=== PATIENT | female | born 1990 | race Caucasian/White ===

== ENCOUNTER → 2017-04-02 | Outpatient (CLI) | payer BC | LOC: PREOP 05:34 | PROVIDERS: ATTEND Otolaryngology Otolaryngology/Facial Plastic Surgery | DX: Z01.818 Encounter for other preprocedural examination (principal); J02.0 Streptococcal pharyngitis ==

== ENCOUNTER 2019-01-26 18:43 | Emergency (ER) | payer BC ==
[~2019-01-26] VITALS: Ht 170.2 cm; Wt 100.0 kg
--- NOTE | 2019-01-26 19:06 | ED Back Pain ---
General Chief Complaint: Back Problems Stated Complaint: BACK PAIN Source of Information: Patient Exam Limitations: No Limitations History of Present Illness Date Seen by Provider: Jan 26, 2019 Time Seen by Provider: 19:02 Initial Comments Patient complains of right lower back pain radiating to his spine and her right hip for quite a while. It is worse in the past 2 days. She stands all day at work and her pain is much worse today. Her primary care provider prescribed hydrocodone but is not helping. She has had no x-rays. No injury. No fevers incontinence or IVDA Location: Lumbar Spine Radiation: Buttocks Allergies and Home Medications Allergies Coded Allergies: No Known Drug Allergies (Unverified , 01/26/19) Patient Home Medication List Home Medication List Reviewed: Yes Review of Systems Constitutional: no symptoms reported Respiratory: no symptoms reported Cardiovascular: no symptoms reported Gastrointestinal: no symptoms reported Musculoskeletal: back pain Psychiatric/Neurological: No Symptoms Reported All Other Systems Reviewed Negative Unless Noted: Yes Past Oisaiyt-Dxbtrd-Ypgsto Hx Patient Social History Recent Foreign Travel: No Contact w/Someone Who Travel: No Physical Exam Vital Signs Vital Signs - First Documented 01/26/19 19:01 Temp 36.8 Pulse 80 Resp 16 B/P (MAP) 145/79 (101) O2 Delivery Room Air Capillary Refill : Height, Weight, BMI Height: '" Weight: lbs. oz. kg; BMI Method: General Appearance: WD/WN, Mild Distress Neck: Supple Cardiovascular: Regular Rate, Rhythm Respiratory: Lungs Clear Gastrointestinal: Soft Back: Muscle Spasm, Vertebral Tenderness (no redness or swelling) Extremity: Normal Inspection Neurologic/Psychiatric: Alert, No Motor/Sensory Deficits (toe dorsiflexion 5/5 bilaterally. Sensation grossly intact), Normal Mood/Affect Skin: Normal Color, Warm/Dry Progress/Results/Core Measures Results/Orders My Orders Orders - EMERSON DOBBS MD Lumbar Spine 4 View Or More (01/26/19 18:57) Pelvis (Ap) (01/26/19 18:57) Ketorolac Injection (Toradol Injection) (01/26/19 19:15) Orphenadrine Injection (Norflex Injectio (01/26/19 19:15) Oxycodone/Apap 5/325mg Tablet (Percocet (01/26/19 20:00) Medications Given in ED Current Medications Medications Dose Ordered Sig/Jake Route Start Time Stop Time Status Last Admin Dose Admin Ketorolac Tromethamine 60 mg ONCE ONCE IM 01/26/19 19:15 01/26/19 19:16 DC 01/26/19 19:11 60 MG Orphenadrine Citrate 60 mg ONCE ONCE IM 01/26/19 19:15 01/26/19 19:16 DC 01/26/19 19:10 60 MG Vital Signs/I&O 01/26/19 19:01 Temp 36.8 Pulse 80 Resp 16 B/P (MAP) 145/79 (101) O2 Delivery Room Air Departure Impression Primary Impression: Back strain Disposition: HOME, SELF-CARE Condition: Stable Departure-Patient Inst. Decision time for Depature: 20:00 Referrals: NO,LOCAL PHYSICIAN (PCP/Family) Primary Care Physician Patient Instructions: Low Back Pain (DC) Add. Discharge Instructions: See your doctor to arrange for MRI of your back. Off work until Thursday. No driving if you take percocet or flexeril. All discharge instructions reviewed with patient and/or family. Voiced understanding. Scripts Cyclobenzaprine HCl (Cyclobenzaprine HCl) 10 Mg Tablet 10 MG PO TID PRN for SPASMS, #14 TAB Prov: EMERSON DOBBS MD 01/26/19 Methylprednisolone (Medrol) 4 Mg Tab.ds.pk 4 MG PO UD for 6 Days, #21 PKG PER DOSE PACK INSTRUCTIONS Prov: EMERSON DOBBS MD 01/26/19 Oxycodone HCl/Acetaminophen (Percocet 5-325 mg Tablet) 1 Each Tablet 1 TAB PO Q6H for PAIN-MODERATE MDD 6 TABS for 7 Days, #14 TAB Prov: EMERSON DOBBS MD 01/26/19 EMERSON DOBBS MD Jan 26, 2019 19:06 POS
[2019-01-26] MEDS ORDERED: KETOROLAC 60 MG/2 ML VIAL IM ONE (19:15)
[2019-01-26] MEDS ORDERED: ORPHENADRINE 60 MG/2 ML (NORFLEX) AMP IM ONE (19:15)
--- NOTE | 2019-01-26 19:41 | Diagnostic Imaging Report ---
INDICATION: Back pain. FINDINGS: Some minimal levoscoliosis which may be positional in nature. Lateral alignment normal. There are no findings of pars defect. Disc spaces appear preserved. Facet is normally aligned. The vertebral body heights appear well-maintained. IMPRESSION: 1. Minimal levoscoliosis which may be positional in nature. Lateral alignment is normal. Vertebral body heights maintained. Disc spaces preserved. There are no findings of a pars defect. Dictated by: Dictated on workstation # [id number]
--- NOTE | 2019-01-26 19:41 | Diagnostic Imaging Report ---
EXAMINATION: AP pelvis INDICATION: Pelvic pain. FINDINGS: The hips are located. There is no diastasis of the pubic symphysis or of the SI joints. Pelvic ring appears intact. No fracture or suspicious bony lesion evident. There are phleboliths within the pelvis. Bowel gas pattern appears nonobstructive. IMPRESSION: Unremarkable radiographs of the pelvis. Dictated by: Dictated on workstation # [id number]
[2019-01-26] MEDS ORDERED: oxyCODONE/APAP 5/325MG (PERCOCET 5) TABLET PO ONE (20:00)
[2019-01-26] MEDS ORDERED: OXYC1TAB87 PO (20:02)
[2019-01-26] MEDS ORDERED: CYCL10TA9 PO (20:02)
[2019-01-26] MEDS ORDERED: METH4TAB PO (20:02)
[2019-01-26 20:08] VITALS: BP 144/78
--- NOTE | 2019-01-26 20:18 | NUR ---
PT REFUSED 1 OF THE 2 OXY TABS. 2ND TAB WASTED.
[2019-01-26] MEDS ORDERED: fentaNYL INJECTION 100 MCG/2 ML AMP IVP ONE (20:30)
== END 2019-01-26 20:08 | disposition home or self-care (01) ==
LOC: EDUNIT# 18:43 → ER FS 18:45
DX: S39.012A Strain of muscle, fascia and tendon of lower back, initial encounter (principal); X58.XXXA Exposure to other specified factors, initial encounter
CPT/HCPCS: 72110; 72170